=== PATIENT | female | born 1985 | race Caucasian/White ===

== ENCOUNTER 2017-02-04 12:48 | Emergency (ER) | payer BC | END 2017-02-04 15:25 | disposition home or self-care (01) | LOC: ER 12:48 | DX: J03.90 Acute tonsillitis, unspecified (principal); E11.9 Type 2 diabetes mellitus without complications; Z79.84 Long term (current) use of oral hypoglycemic drugs; Z79.899 Other long term (current) drug therapy | CPT/HCPCS: 36415; 96361; 96365; 96375; J0696; J1100; J1885 ==